=== PATIENT | male | born 1985 | race Caucasian/White ===

== ENCOUNTER → 2017-01-10 | Outpatient (CLI) | payer OTHER ==
[2017-01-10 10:05] LABS: FOLLICLE STIMULATING HORMONE 7.8 mIU/mL (0.7-10.8); LUTEINIZING HORMONE 5.7 mIU/mL (1.2-10.6)
[2017-01-10 10:07] LABS: ALKALINE PHOSPHATASE 66 U/L (45-117); ALT (GPT) 15 U/L (12-78); ANION GAP 6 MEQ/L (5-15); AST (GOT) 19 U/L (15-37); BICARBONATE 28.5 MEQ/L (21.0-32.0); BLOOD UREA NITROGEN 8 MG/DL (7-18); CHLORIDE 108 MEQ/L (98-107); GLOMERULAR FILTRATION RATE 88 ML/MIN (>89); GLUCOSE,FASTING 103 MG/DL (74-99); LDL CHOLESTEROL 84 MG/DL (0-99); SODIUM (NA) 142 MEQ/L (136-145); TOTAL BILIRUBIN ADULT 0.4 MG/DL (0.2-1.0)
[2017-01-12 10:54] LABS: ACROSOM DEFECT 27.5 % (()); GERM CELLS/ML 1.85 x10(6) (<4.00); HEAD SHAPE ABNORMAL 11.5 % (()); HEAD SIZE ABNORMAL 11.5 % (()); MOTILE/EJACULATE 0.8 x10(6) (>=9.0); MOTILE/mL 0.3 x10(6) (>=6.0); MOTILITY 9 % (>=40); MULTIPLE DEFECTS 0.5 % (()); SEMEN CONTAINER TYPE 50 mL Conical (()); SPERM/ML 3.4 x10(6) (>=15.0); STRICT MORPH % NORMAL 0.5 % (>=4.5); STUDY TYPE Semen (()); SUPRAVITAL STAIN 9 % live (>=58); TAIL ABNORMAL 32.5 % (())
== END ==
LOC: CLAB 08:57
DX: N46.01 Organic azoospermia (principal)
CPT/HCPCS: 36415; 80053; 80061; 83001; 83002; 84403; 89310